=== PATIENT | female | born 1970 | race Caucasian/White ===

== ENCOUNTER → 2021-05-25 | Day surgery (SDC) | payer SELFPAY | END | disposition home or self-care (01) | LOC: FMAMMOTONE 09:44 → EDSTATUS 10:30 | PROVIDERS: ATTEND Family Medicine | PROC: 0HBU3ZX Excision of Left Breast, Percutaneous Approach, Diagnostic (ICD-10-PCS; principal; 2021-05-25) | DX: N60.92 Unspecified benign mammary dysplasia of left breast (principal); N60.32 Fibrosclerosis of left breast; N64.89 Other specified disorders of breast; R92.0 Mammographic microcalcification found on diagnostic imaging of breast | CPT/HCPCS: 19081; 76098-TC-FY; 87899; A4648 ==

== ENCOUNTER → 2021-08-28 | Day surgery (SDC) | payer OTHER | END | disposition home or self-care (01) | LOC: FMAMMOTONE 08-21 09:05 | PROVIDERS: ATTEND Surgery | PROC: 0HBU3ZX Excision of Left Breast, Percutaneous Approach, Diagnostic (ICD-10-PCS; principal; 2021-08-28) | DX: N60.12 Diffuse cystic mastopathy of left breast (principal); N60.32 Fibrosclerosis of left breast; N60.82 Other benign mammary dysplasias of left breast; N64.89 Other specified disorders of breast; R92.8 Other abnormal and inconclusive findings on diagnostic imaging of breast | CPT/HCPCS: 19081; 76098-TC-FY; 87899; 88305-TC; A4648 ==

== ENCOUNTER → 2021-09-19 | Day surgery (SDC) | payer OTHER ==
[2021-08-04 11:22] VITALS: BMI 21.4
[~2021-09-19] MED LIST: ISOSULFAN BLUE 50 MG/5 ML VIAL SQ ONE; LACTATED RINGERS SOLUTION 1,000 ML IV SCH; LIDOCAINE HCL 1%, 10 MG/ML (20ML VIAL) NR ONE; LIDOCAINE HCL 1%, 10 MG/ML (20ML VIAL) ONE; MIDAZOLAM HCL 2 MG/2 ML SINGLE DOSE VIAL ONE; ONDANSETRON 4 MG/2 ML VIAL IVPUSH PRN; PROPOFOL 20 ML ONE; ceFAZolin 2 GRAM PREMIX BAG IVPB ONE; oxyCODONE HCL 5 MG TABLET PO PRN
[2021-09-19 14:16] VITALS: BP 120/60; PULSE 82; TEMP 97.4
== END | disposition home or self-care (01) ==
LOC: JASU-SURG 04:19
PROVIDERS: ATTEND Surgery
PROC: 0HBU0ZZ Excision of Left Breast, Open Approach (ICD-10-PCS; principal; 2021-09-19 10:00)
DX: N60.12 Diffuse cystic mastopathy of left breast (principal); N60.92 Unspecified benign mammary dysplasia of left breast
CPT/HCPCS: 19281; 76098-TC-FY; 94760